=== PATIENT | female | born 2000 | race Caucasian/White ===

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

== ENCOUNTER 2024-02-05 10:43 | Emergency (ER) | payer OTHER ==
[~2024-02-05] VITALS: Ht 162.6 cm; Wt 97.9 kg
[2024-02-05] MEDS ORDERED: PANT40TA29 PO (10:57)
[2024-02-05] MEDS ORDERED: FLUO-365 PO (10:57)
[2024-02-05] MEDS ORDERED: ONDA-284 PO (10:57)
[2024-02-05] MEDS ORDERED: ALBU8.5H INH (10:57)
[2024-02-05 11:39] LABS: BASO % 0.4 % (0.0-1.0); EOS % 0.4 % (0.0-3.0); HEMATOCRIT 38.8 % (36.0-47.0); HEMOGLOBIN 12.9 g/dl (12.0-15.5); LYMPH # 2.2 10^3/uL (1.5-5.0); LYMPH % 22.5 % (24.0-44.0); MEAN CORPUSCULAR HEMOGLOBIN 29.5 pg (27.0-33.0); MEAN CORPUSCULAR HGB CONC 33.2 g/dl (32.0-36.5); MEAN CORPUSCULAR VOLUME 88.8 fl (80.0-96.0); MONO # 0.8 10^3/uL (0.0-0.8); MONO % 7.7 % (2.0-8.0); NEUTROPHILS # 6.8 10^3/uL (1.5-8.5); NEUTROPHILS % 68.8 % (36.0-66.0); PLATELET COUNT, AUTOMATED 303 10^3/uL (150-450); RED BLOOD COUNT 4.37 10^6/uL (4.00-5.40)
[2024-02-05 12:07] LABS: LIPASE 31 U/L (12-53)
[2024-02-05 12:08] LABS: HCG, SERUM QUALITATIVE NEGATIVE (NEGATIVE)
[2024-02-05 12:09] LABS: ALBUMIN 4.3 G/DL (3.2-5.2); ALKALINE PHOSPHATASE 74 U/L (46-116); ALT/SGPT 37 U/L (7.0-40); AST/SGOT 26 U/L (<34); BILIRUBIN,DIRECT 0.2 MG/DL (<0.4); BILIRUBIN,TOTAL 0.5 MG/DL (0.3-1.2); TOTAL PROTEIN 7.5 G/DL (5.7-8.2)
[2024-02-05] MEDS: NS 1,000 ML IV ONE (13:02)
[2024-02-05] MEDS: ONDANSETRON 4MG 2ML VIAL IV ONE (13:02)
[2024-02-05] MEDS: ACETAMINOPHEN *IV* 1,000 MG in IV 1 EA IV ONE (13:03)
[2024-02-05] MEDS ORDERED: ISOVUE-370 76% 100ML VIAL As Ordered ONE (13:32)
[2024-02-05] MEDS ORDERED: HOME MED LIST COMPLETE! XX SCH (14:40)
[2024-02-05] MEDS ORDERED: ONDA-282 PO (14:47)
[2024-02-05 15:32] VITALS: BP 118/61; TEMP 98.4; O2SAT 99
== END 2024-02-05 15:35 | disposition home or self-care (01) ==
LOC: M ED 10:43
DX: R10.84 Generalized abdominal pain (principal); K59.00 Constipation, unspecified; F12.10 Cannabis abuse, uncomplicated; F10.10 Alcohol abuse, uncomplicated; Z79.51 Long term (current) use of inhaled steroids; Z79.899 Other long term (current) drug therapy
CPT/HCPCS: 74177; 80047; 80076; 81001; 83690; 84703; 85025; 87086; 96365; 96374; 99284; J0131; J2405; Q9967